=== PATIENT | female | born 1955 | race Two or more races ===

== ENCOUNTER 2017-09-03 17:14 | Emergency (ER) | payer OTHER, SELFPAY ==
[~2017-09-03] VITALS: Ht 160 cm; Wt 87.0 kg
[2017-09-03 17:15] VITALS: BP 147/82
[2017-09-03] MEDS ORDERED: FLUORESCEIN OPHTHALMIC 1 MG STRIP ONE (17:41)
== END 2017-09-03 18:31 | disposition home or self-care (01) ==
LOC: ED 18:31
DX: H10.022 Other mucopurulent conjunctivitis, left eye (principal)
CPT/HCPCS: 99283

== ENCOUNTER 2020-07-13 12:22 | Outpatient (CLI) | payer OTHER | END 2020-07-13 23:59 | disposition home or self-care (01) | LOC: RAD 12:22 | PROVIDERS: ATTEND Internal Medicine Cardiovascular Disease | DX: Z01.818 Encounter for other preprocedural examination (principal); Z01.812 Encounter for preprocedural laboratory examination; Z01.89 Encounter for other specified special examinations; R79.1 Abnormal coagulation profile | CPT/HCPCS: 93005 ==